=== PATIENT | female | born 1985 | race Caucasian/White ===

== ENCOUNTER 2020-09-15 00:59 | Emergency (ER) | payer SELFPAY ==
[~2020-09-15] VITALS: Ht 175.3 cm; Wt 127.3 kg
[~2020-09-15 00:59] MED LIST: CYCL-331 PO; HYDR-3165 PO
--- NOTE | 2020-09-15 01:00 | PHYS DOC ---
Past History Past Medical History: No Pertinent History Past Surgical History: No Surgical History Smoking: Non-smoker Alcohol Use: None Drug Use: None General Adult HPI: HPI: ".. I started getting dizzy...and vomiting.. I was just laying in bed and eating.. when it started... ".. " I am worse if I sit up real fast or turn to my right.. " " I am fine if I lay on my Rt. side. " Patient is a 35 year old female who presents with above hx and complaints onset of acute episode of dizziness, nausea, vomiting. Patient states that moving her head seems to make the dizziness worse. Patient denies any trauma. Patient denies any intake of bad food. No recent travel. No severe ill contacts. Does have contact with patients in the [employer] where she works that have health problems. Patient has no history of immunosuppression. No history of fever or chills. Pain is localized in epigastric area. Patient has some malaise type feelings last 2 or 3 days. Significant other has not become ill eating same foods. Pt. states dizziness and nausea is induced when she sits up quickly or turns to the right. Has no symptoms when she lays on her left side.. Patient Covid test have been negative. 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 Patient does have nystagmus when she turns her head to the right approximately 4 beats. Review of Systems: Review of Systems: Constitutional: Denies fever or chills Eyes: Denies change in visual acuity HENT: Denies nasal congestion or sore throat Respiratory: Denies cough or shortness of breath Cardiovascular: Denies chest pain or edema GI: Complains of abdominal pain, nausea, vomiting,. Denies bloody stools or diarrhea : Denies dysuria Musculoskeletal: Denies back pain or joint pain Integument: Denies rash Neurologic: Denies headache, focal weakness or sensory changes . Complaints of dizziness Endocrine: Denies polyuria or polydipsia Lymphatic: Denies swollen glands Psychiatric: Denies depression or anxiety Family History: Family History: Noncontributory to presentation Current Medications: Current Meds: See nursing for home meds Allergies: Allergies: Allergic to Keflex Physical Exam: PE: Constitutional: Moderate acute distress, non-toxic appearance. [] HENT: Normocephalic, atraumatic, bilateral external ears normal, oropharynx dry, TMs are clear, no oral exudates, nose slightly swollen turbinates Eyes: PERRLA, EOMI, conjunctiva normal, no discharge. [] Neck: Normal range of motion, no tenderness, supple, no stridor. [] Cardiovascular: Bradycardia heart rate regular rhythm, no murmur [] Lungs & Thorax: Bilateral breath sounds equal apex with few wheezes on auscultation [] Abdomen: Bowel sounds normal, soft, epigastric and right upper quadrant tenderness, no masses, no pulsatile masses. Morbidly obese. Skin: Warm, dry, no erythema, no rash. [] Back: No tenderness, no CVA tenderness. [] Extremities: No tenderness, no cyanosis, no clubbing, ROM intact, no edema. [] Neurologic: Alert and oriented X 3, normal motor function, normal sensory function, no focal deficits noted. [] DTRs +2 patella and brachial. Recreation Assistant equal. Does have nystagmus when she turns her head to the right. Psychologic: Affect anxious, judgement normal, mood normal. [] EKG: EKG: My interpretation EKG shows a sinus rhythm at 61 bpm. No acute morphology. [] Radiology/Procedures: Radiology/Procedures: [address] [address] IMAGING REPORT Signed PATIENT: EDYTA EDMONDSON ACCOUNT: [id number] : 1985 LOCATION: ER AGE: 35 SEX: F EXAM STATUS: REG ER ORD. PHYSICIAN: LUPE ONEAL MD REASON: n/v, dizzy, mental status change PROCEDURE: CT HEAD AND CERVICAL SPINE WO EXAM: CT head and cervical spine without contrast INDICATION: Dizziness, nausea vomiting, mental status change COMPARISON: None TECHNIQUE: Axial CT imaging through the head and cervical spine without intravenous contrast. Sagittal and coronal reformats were obtained. One or more of the following individualized dose reduction techniques were utilized for this examination: 1. Automated exposure control 2. Adjustment of the mA and/or kV according to patient size 3. Use of iterative reconstruction technique. FINDINGS: CT head: The ventricles and sulci are normal. Maria-white matter differentiation is maintained. There is no intracranial hemorrhage, acute infarct, or mass lesion. Basal cisterns are clear. The skull and scalp are intact. Paranasal sinuses and mastoid air cells are clear. Globes and orbits are intact.. CT cervical spine: No acute fracture. Alignment is normal. Reversal lordosis may be related to pain or positioning. The craniocervical junction and atlantoaxial interval are maintained. Disc spaces and facet joints are normal. Prevertebral soft tissue is normal. IMPRESSION: No acute intracranial abnormality or acute osseous abnormality of the cervical spine. Electronically signed by: Edyta Hdz MD (09/15/2020 4:18 AM) [id number] DICTATED AND SIGNED BY: EDYTA HDZ MD DATE: 09/15/20 0414 CC: LUPE ONEAL MD; PCP,NO ~MTH0 0 [] [place] [address] IMAGING REPORT Signed PATIENT: EDYTA EDMONDSON ACCOUNT: [id number] : 1985 LOCATION: ER AGE: 28 SEX: F EXAM STATUS: REG ER ORD. PHYSICIAN: ARLINE GORE MD REASON: Sudden headache, No known injuries PROCEDURE: HEAD WO CONTRAST : Examination: CT head without contrast. History: Sudden onset of headache. COMPARISON: None available. FINDINGS: There is no evidence of midline shift. There is no acute intracranial bleed or extra-axial fluid collection identified. The mayberry white matter differentiation is maintained. The basal cisterns are not effaced. A small mucous retention cyst or polyp noted in the right maxillary sinus. IMPRESSION: 1. No acute intracranial findings. 2. Small mucous retention cyst or polyp identified in the right maxillary sinus. Electronically signed by: Carter Velez (Mar 24, 2014 21:28:24) DICTATED AND SIGNED BY: CARTRE VELEZ MD DATE: 03/24/142127 CC: ARLINE GORE MD; DANIELLA CAVANAUGH ~ Heart Score: HEART Score for Chest Pain: HEART Score for Chest Pain Response (Comments) Value History Slighlty/Non-Suspicious 0 ECG Normal 0 Age < 45 0 Risk Factors No Risk Factors 0 Troponin < Normal Limit 0 Total 0 Risk Factors: Risk Factors: DM, Current or recent (<one month) smoker, HTN, HLP, family history of CAD, obesity. Risk Scores: Score 0 - 3: 2.5% MACE over next 6 weeks - Discharge Home Score 4 - 6: 20.3% MACE over next 6 weeks - Admit for Clinical Observation Score 7 - 10: 72.7% MACE over next 6 weeks - Early Invasive Strategies Course & Med Decision Making: Course & Med Decision Making Pertinent Labs and Imaging studies reviewed. (See chart for details) Patient stay on a clear fluid diet for the next 24 to 48 hours. Avoid solids or milk products. Take Zofran as needed for nausea and vomiting. May try meclizine 25 mg up to 4 times a day for dizziness. Patient to do a course of prednisone 50 mg a day for the next 5 days. Patient to follow-up primary care. Patient return if any concerns. Suspect this is an acute positional Labyrinthitis secondary because of viral illness. Push fruit juices. Impression: 1. Acute Positional Labyrinthitis 2. Viral syndrome 3. Nausea and Vomiting 4. Anemia . Hgb 11.3 [] Dragon Disclaimer: Estrella Disclaimer: This electronic medical record was generated, in whole or in part, using a voice recognition dictation system. Departure Departure: Referrals: PCP,ELIA (PCP) Scripts Meclizine Hcl (MECLIZINE HCL) 25 Mg Tablet 25 MG PO QIDPRN PRN for vertigo, #30 TAB Prov: LUPE ONEAL MD 09/15/20 Ondansetron Hcl (ZOFRAN) 4 Mg Tablet 8 MG PO QIDPRN for nv, #30 TAB Prov: LUPE ONEAL MD 09/15/20 Prednisone (PREDNISONE) 50 Mg Tablet 1 TAB PO DAILY for vertigo for 5 Days, #5 TAB Prov: LUPE ONEAL MD 09/15/20 Dragon Disclaimer This chart was dictated in whole or in part using Voice Recognition software in a busy, high-work load, and often noisy Emergency Department environment. It may contain unintended and wholly unrecognized errors or omissions. LUPE ONEAL MD Sep 15, 2020 01:00
[2020-09-15] MEDS ORDERED: ONDANSETRON PF 4 MG/2 ML VIAL. IVP ONE ×2 (01:15→02:00)
[2020-09-15 01:51] LABS: BASO % 0 % (0-3); EOS % 0 % (0-3); HEMATOCRIT 35.4 % (36.0-47.0); HEMOGLOBIN 11.3 g/dL (12.0-15.5); LYMPH # 3.2 x10^3/uL (1.0-4.8); LYMPH % 36 % (24-48); MEAN CORPUSCULAR HEMOGLOBIN 25 pg (25-35); MEAN CORPUSCULAR HGB CONC 32 g/dL (31-37); MEAN CORPUSCULAR VOLUME 79 fL (79-100); MONO # 0.6 x10^3/uL (0.0-1.1); MONO % 6 % (0-9); NEUT # 5.1 x10^3uL (1.8-7.7); NEUT % 57 % (31-73); PLATELET COUNT 321 x10^3/uL (140-400); RED BLOOD COUNT 4.47 x10^6/uL (3.50-5.40)
[2020-09-15 01:58] LABS: CALCIUM 8.8 mg/dL (8.5-10.1); CREATININE 0.7 mg/dL (0.6-1.0); GFR 94.2; POTASSIUM 3.4 mmol/L (3.5-5.1)
[2020-09-15] MEDS ORDERED: FAMOTIDINE 20 MG/2 ML VIAL IVP ONE (02:00)
[2020-09-15] MEDS ORDERED: IV RINGERS SOLUTION,LACTATED 1,000 ML IV SCH (02:00)
[2020-09-15 02:03] LABS: ALBUMIN 3.6 g/dL (3.4-5.0); DIRECT BILIRUBIN 0.1 mg/dL (0.0-0.2); TOTAL BILIRUBIN 0.2 mg/dL (0.2-1.0); TOTAL PROTEIN 7.4 g/dL (6.4-8.2)
[2020-09-15] MEDS ORDERED: MECLIZINE 12.5 MG TABLET. ONE (02:37)
[2020-09-15] MEDS ORDERED: MECLIZINE 12.5 MG TABLET. PO ONE (03:00)
[2020-09-15] MEDS ORDERED: predniSONE 10 MG TABLET PO ONE (03:30)
[2020-09-15 03:32] LABS: BARBITURATES NEG (NEG); BENZODIAZEPINES NEG (NEG); CANNABINOIDS NEG (NEG); COCAINE NEG (NEG); METHADONE NEG (NEG); OPIATES NEG (NEG); PHENCYCLIDINE NEG (NEG)
[2020-09-15 03:37] LABS: BACTERIA,URINE FEW /HPF (0-FEW); BILIRUBIN,URINE NEG (NEG); CLARITY,URINE HAZY; COLOR,URINE YELLOW; GLUCOSE,URINE NEG (NEG); NITRITE,URINE NEG (NEG); RBC,URINE OCC /HPF (0-2); SQUAMOUS EPITHELIAL CELL,UR MANY /LPF; UROBILINOGEN,URINE 0.2 mg/dL (0.2 mg/dL)
[2020-09-15 03:44] LABS: AMPHETAMINE/METHAMPHETAMINE NEG (NEG)
--- NOTE | 2020-09-15 04:20 | RAD ---
EXAM: CT head and cervical spine without contrast INDICATION: Dizziness, nausea vomiting, mental status change COMPARISON: None TECHNIQUE: Axial CT imaging through the head and cervical spine without intravenous contrast. Sagitta l and coronal reformats were obtained. One or more of the following individualized dose reduction techniques were utilized for this examinat ion: 1. Automated exposure control 2. Adjustment of the mA and/or kV according to patient size 3. Use of iterative reconstruction technique. FINDINGS: CT head: The ventricles and sulci are normal. Maria-white matter differentiation is maintained. There is no in tracranial hemorrhage, acute infarct, or mass lesion. Basal cisterns are clear. The skull and scalp are intact. Paranasal sinuses and mastoid air cells are clear. Globes and orbits are intact.. CT cervical spine: No acute fracture. Alignment is normal. Reversal lordosis may be related to pain or positioning. The craniocervical junction and atlantoaxial interval are maintained. Disc spaces and facet joints are no rmal. Prevertebral soft tissue is normal. IMPRESSION: No acute intracranial abnormality or acute osseous abnormality of the cervical spine. Electronically signed by: Edyta Hdz MD (09/15/2020 4:18 AM) [id number]
[2020-09-15 04:55] VITALS: BP 135/88
[2020-09-15] MEDS ORDERED: PRED50TA PO (05:08)
[2020-09-15] MEDS ORDERED: MECL-75 PO (05:08)
[2020-09-15] MEDS ORDERED: ONDA4TAB7 PO (05:08)
--- NOTE | 2020-09-15 05:54 | EKG ---
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
--- NOTE | 2020-09-15 07:04 | RAD ---
EXAM: XR ABDOMEN COMP ACUTE 09/15/2020 4:15 AM CLINICAL INDICATION: Nausea vomiting COMPARISON: None TECHNIQUE: AP and supine view of the abdomen and PA view the chest FINDINGS: Bowel gas pattern is nonspecific and nonobstructive. Moderate volume stool. Tubal ligation devices noted. The heart and lungs are normal. No acute osseous abnormality. IMPRESSION: No acute abnormality. Electronically signed by: Edyta Hdz MD (09/15/2020 7:02 AM) [id number]
== END 2020-09-15 05:25 | disposition home or self-care (01) ==
LOC: ER 00:59
DX: H83.09 Labyrinthitis, unspecified ear (principal); B34.9 Viral infection, unspecified; R11.2 Nausea with vomiting, unspecified; D64.9 Anemia, unspecified; R10.13 Epigastric pain; R10.11 Right upper quadrant pain; Z88.8 Allergy status to other drugs, medicaments and biological substances
CPT/HCPCS: 36415; 70450; 72125; 74022; 80048; 80076; 80307; 81001; 81025; 82150; 82550; 83690; 84484; 85025; 87086; 93005; 96361; 96374; 96375; 99285; J2405; J3490; J7120; J7512